=== PATIENT | male | born 1960 | race Caucasian/White ===

== ENCOUNTER 2017-02-17 23:32 | Inpatient (IN) ==
[2017-02-18] MEDS ORDERED: LOPERAMIDE 2 MG CAPSULE PO STA (00:04)
[2017-02-18] MEDS ORDERED: ONDANSETRON 4 MG/2 ML VIAL IV STA (00:04)
--- NOTE | 2017-02-18 00:08 | Emergency Department Note ---
Arrival - Arrival Chief Complaint: Nausea/Vomiting/Diarrhea Stated Complaint: nausea/vommiting ED Nursing Triage Note: PT TO ROOM VIA [facility] STRETCHER. PT C/O N/V AND DECREASED APPETITE. PT HAS DISTINDED ABDOMEN, CIRRHOSIS, PT WAS SCHEDULED FOR PARENCENTESIS IN AM BUT RESCHEDULED. Mode of Arrival: Stretcher Limitations: No Limitations Source: Patient Time Seen by Provider: 02/18/17 00:04 - History of Present Illness HPI Narrative: This 56-year-old white male with long-standing cirrhosis followed by GI presents with complaints of nausea, vomiting, and loose stools. The patient denies chills or fever. The patient was scheduled for elective paracentesis tomorrow for recurrent persistent severe ascites. He appears in stable medical condition at this time. Onset (ago): hour(s) (Patient presents 24 hours post onset of symptoms) Allergies/Adverse Reactions: Allergies Allergy/AdvReac Type Severity Reaction Status Date / Time No Known Allergies Allergy Verified 09/03/16 05:24 Home Medications: Home Medications Medication Instructions Recorded Confirmed Type Sertraline [Zoloft] 50 mg PO DAILY 07/11/15 11/23/16 History Spironolactone [Aldactone] 100 mg PO DAILY 07/11/15 11/23/16 History Thiamine Tab [Vitamin B1 Tab] 100 mg PO DAILY 07/11/15 11/23/16 History amLODIPine [Norvasc] 5 mg PO DAILY 07/11/15 11/23/16 History Furosemide Tab [Lasix Tab] 40 mg PO DAILY #30 tablet 09/03/16 11/23/16 Rx Review of System - Review of System 12 point system: reviewed and no additional remarkable complaints except as stated - Review of System Constitutional: Present: as per HPI Gastrointestinal: Present: as per HPI Medical,Surgical,& Family Hx - Medical History Cardio: History of: Hypertension Neurology: No history of: Seizures Gastrointestinal: History of: Liver Problems - Social History Smoking Status: Current every day smoker Frequency of Alcohol Use: None Type of Drug Use: None Exam Physical Examination: GENERAL: Chronically ill-appearing white male in no acute distress. HEENT: Normocephalic. No trauma. Moist mucous membranes. EOMI. PERRLA. ENT NML NECK: Supple. No adenopathy. CARDIAC: Regular. No murmurs. Heart rate 95 CHEST: Clear to auscultation. No respiratory distress. O2 sat 99% ABDOMEN: Firm but not tense with fluid wave noted. Distant but active bowel sounds. EXTREMITIES: No trauma. Normal ROM. No pedal edema. SKIN: No diaphoresis. No rash. NEURO: Alert. Oriented 3. Motor, sensory, vibratory intact without evidence of asterixis. No focal deficits. Vital Signs: Vital Signs Temperature 98.7 F 02/17/17 23:39 Pulse Rate 97 H 02/17/17 23:39 Respiratory Rate 20 02/17/17 23:39 Blood Pressure 122/72 02/17/17 23:39 O2 Sat by Pulse Oximetry 99 02/17/17 23:39 Course - Reevaluation(s) Reevaluation #1: I have advised the patient of his laboratory abnormalities and need for hospitalization. - Consultations Consultation #1: I discussed the situation with the hospitalist service who will admit for further evaluation treatment. Results - Labs CBC & BMP: 02/18/17 00:00 02/18/17 00:00 Labs: I have reviewed the lab and noted the low hematocrit and elevated ammonia. Disposition Clinical Impression: Cirrhosis with ascites, Hepatic encephalopathy Case discussed with: patient, patient's family Condition: Guarded Time of Disposition: 01:15
[2017-02-18 00:10] LABS: Basophils % 0.5 % (0.0-0.8); Eosinophils # 0.5 10*3/uL (0.0-0.87); Eosinophils % 6.5 % (0.00-10.9); Hematocrit 29.1 VOL% (42.0-52.0); Hemoglobin 10.6 GM/DL (14.0-18.0); Immature Granulocytes % 0.8 %; Immature Granulocytes Absolute 0.06 #; Lymphocytes # 0.7 10*3/uL (1.4-4.0); Mean Corpuscular HGB Conc 36.4 GM/DL (32-36); Mean Corpuscular Hemoglobin 38 PG (27-34); Mean Corpuscular Volume 102.8 FL (87-102); Mean Platelet Volume 8.5 FL (9.6-12.0); Monocytes # 0.8 10*3/uL (0.11-0.8); Monocytes % 9.9 % (1.7-12.7); Neutrophils # 5.8 10*3/uL (1.4-7.4); Neutrophils % 73.3 % (38.7-73.9); Platelet Count 72 T/CUMM (130-400); Red Blood Count 2.83 MC/CUMM (3.8-5.5); Red Cell Distribution Width 14.2 % (9.3-17.3); White Blood Count 7.9 T/CUMM (4-12)
[2017-02-18] MEDS ORDERED: LOPERAMIDE 2 MG CAPSULE ONE (00:12)
[2017-02-18] MEDS ORDERED: ONDANSETRON 4 MG/2 ML VIAL ONE (00:12)
[2017-02-18 00:33] LABS: Alanine Aminotransferase 22 U/L (16-61); Albumin 1.9 G/DL (3.4-5.0); Alkaline Phosphatase 128 U/L (45-117); Amylase 68 U/L (25-115); Aspartate Amino Transferase 25 U/L (0-37); Blood Urea Nitrogen 7 MG/DL (7-18); Calcium 7.3 MG/DL (8.5-10.1); Glucose 107 MG/DL (74-106); Osmolality,Calculated 261.5 MOS/KG (273-304); Potassium 3.9 MMOL/L (3.5-5.1); Sodium 132 MMOL/L (136-145); Total Protein 5.2 G/DL (6.4-8.3); Troponin I Only < 0.015 NG/ML (0.00-0.045)
[2017-02-18 00:36] LABS: Ammonia 63 UMOL/L (11-32)
[2017-02-18] MEDS ORDERED: PROMETHAZINE 25 MG TABLET PO PRN (01:42)
--- NOTE | 2017-02-18 01:56 | Hospitalist History & Physical ---
Assessment and Plan (1) Liver cirrhosis Status: Acute Current Visit: Yes (2) Recurrent ascites Status: Acute Current Visit: Yes (3) Gastroenteritis Status: Acute Current Visit: Yes (4) Nausea vomiting and diarrhea Status: Acute Current Visit: Yes (5) Tobacco abuse Status: Acute Assessment and plan: Greater than 3 minutes was spent with this patient discussing the need for him to quit smoking. Our plan for this patient 1. Admit the patient service 2. Consult his liver specialist Dr. Bhardwaj 3. Ultrasound-guided paracentesis 4. Treat his nausea 5. Clear liquid diet 6. Stool culture and studies Current Visit: Yes History of Present Illness Chief complaint: Nausea vomiting diarrhea History of present illness: Mr. Kline is a 56 year old male with past medical history significant for cirrhosis and recurrent ascites was in his normal state of poor health till yesterday. Patient tells me that he started developing frequent emesis. He also was having diarrhea at the same time. Patient takes lactulose and therefore has loose stools routinely. But he said that this is different than that. He denies fever and was scheduled to have a paracentesis today but postponed until next Tuesday. Dr. Bhardwaj is his liver specialist I was consulted to admit him to the emergency room. Home Medications Medication Instructions Recorded Confirmed Type Sertraline [Zoloft] 50 mg PO DAILY 07/11/15 11/23/16 History Spironolactone [Aldactone] 100 mg PO DAILY 07/11/15 11/23/16 History Thiamine Tab [Vitamin B1 Tab] 100 mg PO DAILY 07/11/15 11/23/16 History amLODIPine [Norvasc] 5 mg PO DAILY 07/11/15 11/23/16 History Furosemide Tab [Lasix Tab] 40 mg PO DAILY #30 tablet 09/03/16 11/23/16 Rx Allergies Allergy/AdvReac Type Severity Reaction Status Date / Time No Known Allergies Allergy Verified 09/03/16 05:24 Medical,Surgical,& Family Hx - Medical History Cardio: History of: Hypertension Neurology: No history of: Seizures Gastrointestinal: History of: Liver Problems - Surgical History Surgical History: noncontributory (none) - Family History Family History: Reports;: Family Cancer, Family Heart Disease - Social History Smoking Status: Current every day smoker Frequency of Alcohol Use: None Type of Drug Use: None 12 point system: reviewed and no additional remarkable complaints except as stated Exam - Constitutional Vitals: Period Temp Pulse Resp BP Sys/Lopez Pulse Ox Last 24 Hr 98.7 F-98.7 F 97-97 20-20 122-122/72-72 99 General appearance: normal weight - Head Head exam: Present: normal inspection - Eye Eye exam: Present: EOMI Pupils: Present: NATI - ENT ENT exam: Present: normal exam - Respiratory Respiratory exam: Present: clear to auscultation bilaterally - Cardiovascular Cardiovascular exam: Present: regular rate and rhythm - GI/Abdominal GI/Abdominal exam: Present: ascites, distended, hernia - Extremities Exam Extremities exam: Present: edema - Back Exam Back exam: Present: normal inspection - Neurological Exam Neurological exam: Present: alert, oriented X3 - Psychiatric Psychiatric exam: Present: normal affect, normal mood Results - Labs CBC & BMP: 02/18/17 00:00 02/18/17 00:00
[2017-02-18 03:19] LABS: Anisocytosis 1+; Band Neutrophils 1 % (0-10); Eosinophils 5 % (0-10); Lymphocytes 9 % (20-55); Myelocytes 1 %; Platelet Estimate Decreased; Segmented Neutrophils 82 % (50-85); Total Cells Counted 100
[2017-02-18 07:57] LABS: Basophils # 0.1 10*3/uL (0.0-0.2); Basophils % 0.6 % (0.0-0.8); Eosinophils # 0.6 10*3/uL (0.0-0.87); Eosinophils % 7.2 % (0.00-10.9); Hematocrit 29.9 VOL% (42.0-52.0); Hemoglobin 11.1 GM/DL (14.0-18.0); Immature Granulocytes % 0.8 %; Immature Granulocytes Absolute 0.07 #; Lymphocytes # 0.8 10*3/uL (1.4-4.0); Lymphocytes % 9.1 % (21.2-54.2); Mean Corpuscular HGB Conc 37.1 GM/DL (32-36); Mean Corpuscular Hemoglobin 38 PG (27-34); Mean Corpuscular Volume 101.7 FL (87-102); Mean Platelet Volume 8.5 FL (9.6-12.0); Monocytes # 0.8 10*3/uL (0.11-0.8); Monocytes % 9.5 % (1.7-12.7); Neutrophils % 72.8 % (38.7-73.9); Red Blood Count 2.94 MC/CUMM (3.8-5.5); Red Cell Distribution Width 14.3 % (9.3-17.3); White Blood Count 8.3 T/CUMM (4-12)
[2017-02-18 07:59] LABS: Platelet Count 84 T/CUMM (130-400)
[2017-02-18 08:03] LABS: INR 1.3; PT Patient Result 14.4 SECS
[2017-02-18 08:16] LABS: Hypochromasia 1+; Ovalocytes Slight; Platelet Estimate Decreased
[2017-02-18 08:17] LABS: Giant Platelets Few
[2017-02-18 08:32] LABS: Albumin 2.1 G/DL (3.4-5.0); Bilirubin,Total 4.4 MG/DL (0.2-1.0); Calcium 7.6 MG/DL (8.5-10.1); Osmolality,Calculated 258.8 MOS/KG (273-304); Potassium 3.8 MMOL/L (3.5-5.1); Total Protein 5.9 G/DL (6.4-8.3)
[2017-02-18] MEDS ORDERED: LACTULOSE 20 GM/30 ML UDCUP PO SCH (09:00)
[2017-02-18 11:01] VITALS: BP 121/74
[2017-02-18] MEDS ORDERED: ALBUMIN 25% 12.5 GM in PREMIX 1 EACH IV ONE ×2 (11:12→12:00)
--- NOTE | 2017-02-18 11:42 | Post Interventional Procedure ---
Pre-op diagnosis: Ascites Post-op diagnosis: same Procedure: Ultrasound-guided paracentesis Radiologist: Vazquez Bailey Anesthesia: local Specimens: none sent Estimated blood loss: none Complications: none Condition: stable Assessment and Plan - Time spent with patient Time spent with patient: Less than 30 minutes
--- NOTE | 2017-02-18 12:22 | Gastrointestinal Consult Note ---
Assessment and Plan (1) Nausea and vomiting Status: Acute Assessment and plan: I strongly suspect that this patient developed nausea and vomiting as result of being exposed to Dilaudid which produced intestinal slowing/ileus resulting in the vomiting episode, now that he is off the medications his symptoms have resolved completely. The patient did receive this medication because he applied for hospice and they granted. If this was on the advice of we can certainly try and get his case reviewed by different transplant team. In my laboratories are discovered this patient does not have hepatitis C, he is positive for hepatitis A and is immune to this, he has no evidence of hemochromatosis with an iron saturation 31%, AFP is normal at 7.9, this patient seems to be doing adequately aside from the sequela of his alcoholic cirrhosis in terms of ascites and hepatic encephalopathy. If we are actively trying to send him to potentially get transplant, I believe that hospice likely since the wrong message and I have asked him to withdraw from their care while we await further workup. Current Visit: Yes (2) Alcoholic cirrhosis of liver with ascites Status: Acute Assessment and plan: This patient does have alcoholic cirrhosis and does require paracentesis to be done about every 2 weeks. This does not look like an SBP episode but rather a medication reaction from Dilaudid. He really does not have substantial pain enough to warrant this medication, but there is not much else pain medication hermosillo to treat him with aside from possibly 2 g of Tylenol per day but not more than this due to his cirrhosis. He could be treated with tramadol but this has a higher risk of seizures with this population. He might be a candidate for TIPSS eventually if we can control his ammonia with Xifaxan and lactulose at its current level. His last ammonia level measured in the clinic was about 102 in the last month or so. Again the patient had paracentesis done with removal of 6 L but likely, will need draining again another 2 weeks. Current Visit: Yes (3) Umbilical hernia without obstruction or gangrene Status: Acute Assessment and plan: The patient does have an umbilical hernia which would respond to counterpressure and abdominal binder. He really does not need surgical repair of this with the amount of ascites that he has--it would simply rapidly recur. Current Visit: Yes (4) Hepatic encephalopathy Status: Acute Assessment and plan: The patient is being controlled with current doses of lactulose. We do not need to add Xifaxan just yet. In my opinion the patient can be discharged today if he does well with a low-sodium diet meal. Again avoid further Dilaudid in the future. Current Visit: Yes History of Present Illness Chief complaint: Nausea/vomiting/alcoholic cirrhosis with severe ascites/mild encephalopathy History of present illness: Mr. Kline is a 56 year old male who recently has decided to apply for hospice, for reasons not completely clear to me. He is due to undergo transplant evaluation of [facility] in the near future. This patient does have alcoholic cirrhosis but has been off of alcohol for the last 9-10 months. He relates that he had in his state of usual health when he was evaluated by hospice nurse and was given Dilaudid. His had commented to the nurse that he was not taking anything for pain, the patient states that when he took this medication it made him extremely ill and started vomiting as a result. He did not throw up anything that look like coffee grounds or bright red blood, just clear fluid and crackers. He states that he threw up approximately 10 times and decided to come to the emergency room for further evaluation as he was not getting much further out from the hospice people, who have been contacted in order to get some Phenergan or other antinauseants. As result he was seen in the emergency room and was brought into the hospital where he has just recently undergone repeat paracentesis. Last paracentesis that he had removed over 10 L this 1 removed approximately 6. He has remained off of alcohol, typically has some diarrhea 4-8 times per day. His waist circumference today is down from his usual 44.5 inches to 41.0 inches with a weight that is increased from 186 pounds to 193 pounds on admission. He has a fairly sizable umbilical hernia but is not having significant abdominal pain. He is actually hungry now would like to eat. Is not having any further episodes of nausea or vomiting. He needs to be off of hospice and not be taking chronic pain medications when he has very little abdominal pain--he was warned that the pain medication would actually make his encephalopathy a lot worse. The patient complains a bit of "feeling different" on 50 mg of Zoloft. states that this does not excellent job in stabilizing his mood, he may consider cutting this back to a half dose per day. Otherwise the patient feels much better now that he is away from his Dilaudid, if he tolerates a solid meal that is low-sodium he can likely go home today. Home Medications Medication Instructions Recorded Confirmed Type Sertraline [Zoloft] 50 mg PO DAILY 07/11/15 02/18/17 History Spironolactone [Aldactone] 100 mg PO DAILY 07/11/15 02/18/17 History Thiamine Tab [Vitamin B1 Tab] 100 mg PO DAILY 07/11/15 02/18/17 History amLODIPine [Norvasc] 5 mg PO DAILY 07/11/15 02/18/17 History Furosemide Tab [Lasix Tab] 40 mg PO DAILY #30 tablet 09/03/16 02/18/17 Rx Potassium Chloride 20 meq PO DAILY 02/18/17 02/18/17 History Temazepam [Temazepam] 15 mg PO BEDTIME PRN 02/18/17 02/18/17 History Allergies Allergy/AdvReac Type Severity Reaction Status Date / Time No Known Allergies Allergy Verified 09/03/16 05:24 Medical,Surgical,& Family Hx - Medical History Cardio: History of: Hypertension Neurology: No history of: Seizures Endocrine: No history of: Diabetes Mellitus (NIDDM) Gastrointestinal: History of: Liver Problems Musculoskeletal: No history of: Amputation - Surgical History Cardiac Surgeries: Patient Denies: Cardiac Catheterization Abdominal Surgeries: Patient denies: Abdominal Surgery - Family History Family History: Reports;: Family Cancer, Family Heart Disease - Social History Smoking Status: Current every day smoker Frequency of Alcohol Use: None Type of Drug Use: None Review of systems: Constitutional: Denies fever, chills, but positive for recent nausea, and vomiting Eyes: Denies dry eyes, and scleral icterus HENT: Denies headaches Cardiovascular: Denies acute chest pain and claudication Respiratory: Denies shortness of breath, wheezing, and difficulty breathing, denies cough Gastrointestinal: As noted in the HPI Genitourinary: Denies dysuria and hematuria Neurologic: Denies vision loss, and loss of sensation Musculoskeletal: Patient does have joint swelling, joint stiffness, and muscular weakness Psychiatric: Admits to some depression and history of alcoholism but no jayla symptoms Heme-Lymph: Patient does have some easy bruising, but no lymph node enlargement or tenderness, night sweats, excessive bleeding Allergies-immunologic: Denies pruritus and rhinorrhea Exam - Constitutional Vitals: Period Temp Pulse Resp BP Sys/Lopez Pulse Ox Last 24 Hr 97.8 F-98.7 F 90-99 16-20 96-128/60-81 92-99 General appearance: no acute distress - Head Head exam: Present: normocephalic - Eye Eye exam: Present: EOMI Pupils: Present: NATI - ENT ENT exam: Present: normal exam - Neck Neck exam: Present: normal inspection - Respiratory Respiratory exam: Present: clear to auscultation bilaterally. Absent: rhonchi, stridor, wheezes - Cardiovascular Cardiovascular exam: Present: regular rate and rhythm - GI/Abdominal GI/Abdominal exam: Present: normal bowel sounds, distended (The current abdominal circumference is 41 inches which is improved from 44.51 last in the office on 11/29/16), soft. Absent: firm, guarding, tenderness, rebound - Extremities Exam Extremities exam: Present: edema - Back Exam Back exam: Present: normal inspection - Neurological Exam Neurological exam: Present: alert, oriented X3, CN II-XII intact - Psychiatric Psychiatric exam: Present: normal affect, normal mood - Skin Skin exam: Present: warm Results - Labs CBC & BMP: 02/18/17 07:48 02/18/17 07:48
--- NOTE | 2017-02-18 13:15 | Ultrasound Report ---
US paracentesis abd w/image Indication: Recurrent ascites. Ultrasound-guided paracentesis Description: A formal timeout was performed. Maximum sterile barrier technique was used. The right lower quadrant was prepped and draped in sterile fashion. Under sonographic guidance, a 6 Peruvian pigtail catheter was advanced into the ascites using trocar technique. A captured sonographic image documents needle position. The needle was removed. Through the catheter, we obtained a total of 6800 cc of straw-colored ascites. No additional fluid could be obtained. Therefore, the catheter was removed. A bandage was placed at the puncture site. The patient tolerated the procedure well. Impression: Ultrasound-guided paracentesis. PROCEDURE INTERPRETED AT [facility] DEPARTMENT OF RADIOLOGY Final Report Signed by: Vazquez Bailey M.D.
--- NOTE | 2017-02-18 14:11 | Discharge Summary ---
Hospital Course - Hospital Course Hospital Course: 56-year-old male with history of alcoholic cirrhosis was admitted with ascites as well as some nausea vomiting. Apparently patient signed up for hospice and they gave him Dilaudid. After that he developed nausea vomiting and presented here. Dilaudid was not resumed. He underwent therapeutic paracentesis and about 6 L of fluid was removed and his symptoms improved significantly. He is feeling much better and has reached maximum hospital benefit and being discharged home. - Time spent with patient Time with patient DS: Less than 30 minutes Diagnosis - Discharge Diagnosis (1) Nausea vomiting and diarrhea Status: Resolved Discharge Plan - Discharge Data Condition at Discharge: Stable Discharge Diet: advance to your usual diet Activity: resume usual activities as tolerated Hygiene: no restrictions Weight Bearing at Discharge: full weight bearing Driving: no restrictions - Discharge Medications Continue amLODIPine [Norvasc] 5 mg PO DAILY Thiamine Tab [Vitamin B1 Tab] 100 mg PO DAILY Spironolactone [Aldactone] 100 mg PO DAILY Furosemide Tab [Lasix Tab] 40 mg PO DAILY #30 tablet Potassium Chloride 20 meq PO DAILY Temazepam 15 mg PO BEDTIME PRN PRN Reason: Sleep Changed Sertraline [Zoloft] 25 mg PO DAILY #0 - Follow Up or Referral - Forms/Instructions Exam - Constitutional Vitals: Period Temp Pulse Resp BP Sys/Lopez Pulse Ox Last 24 Hr 97.8 F-98.7 F 90-99 16-20 96-128/60-81 92-99 Exam: General: No Acute Distress HEENT: Normocephalic, atraumatic, Extra ocular movements intact Neck: Supple, No JVD Chest: Clear to auscultation B/L CV: S1 + S2 audible without murmur, gallop or rub Abd: soft, NT, Non-distended, BS + Ext: No edema Skin: No purpura, bruising or rash Rheumatologic: No Joint deformities Neurologic: Strength 5/5 all extremities, no gross sensory deficits Discharge Results Procedures and tests throughout hospitalization: Pending Orders 02/18/17 01:50 Stool Culture Routine Stool for WBCs Routine stool [C. Diff Toxins A & B] Routine 02/18/17 02:28 Urinalysis Stat Labs on day of discharge: Labs from last 24 hours 02/18/17 02/18/17 02/18/17 07:48 07:48 07:48 WBC 8.3 RBC 2.94 L Hgb 11.1 L Hct 29.9 L MCV 101.7 MCH 38 H MCHC 37.1 H RDW 14.3 Plt Count 84 L MPV 8.5 L Neut % (Auto) 72.8 Lymph % (Auto) 9.1 L Davis % (Auto) 9.5 Eos % (Auto) 7.2 Baso % (Auto) 0.6 Neut # (Auto) 6.0 Lymph # (Auto) 0.8 L Davis # (Auto) 0.8 Eos # (Auto) 0.6 Baso # (Auto) 0.1 Total Counted Immature Gran % 0.8 Nucleated RBC % 0.0 Immature Gran # 0.07 Segmented Neutrophils Band Neutrophils Lymphocytes Monocytes Eosinophils Myelocytes Nucleated RBCs # 0.00 Platelet Estimate Decreased Giant Platelets Few Immature Plt Fraction 0.9 Hypochromasia 1+ Anisocytosis Ovalocytes Slight Morphology Comment INR 1.3 PT Patient/Control Mix 14.4 Sodium 130 L Potassium 3.8 Chloride 97 L Carbon Dioxide 25 Anion Gap 11.8 BUN 8 Creatinine 0.80 GFR Calculation 121 BUN/Creatinine Ratio 10.00 Glucose 109 H Calculated Osmolality 258.8 L Calcium 7.6 L Total Bilirubin 4.40 H AST 29 ALT 26 Alkaline Phosphatase 136 H Ammonia Total Creatine Kinase CK-MB (CK-2) Troponin I Total Protein 5.9 L Albumin 2.1 L Globulin 3.8 H Albumin/Globulin Ratio 0.5 L Amylase Lipase 02/18/17 02/18/17 00:00 00:00 WBC 7.9 RBC 2.83 L Hgb 10.6 L Hct 29.1 L MCV 102.8 H MCH 38 H MCHC 36.4 H RDW 14.2 Plt Count 72 L MPV 8.5 L Neut % (Auto) 73.3 Lymph % (Auto) 9.0 L Davis % (Auto) 9.9 Eos % (Auto) 6.5 Baso % (Auto) 0.5 Neut # (Auto) 5.8 Lymph # (Auto) 0.7 L Davis # (Auto) 0.8 Eos # (Auto) 0.5 Baso # (Auto) 0.0 Total Counted 100 Immature Gran % 0.8 Nucleated RBC % 0.0 Immature Gran # 0.06 Segmented Neutrophils 82 Band Neutrophils 1 Lymphocytes 9 L Monocytes 2 Eosinophils 5 Myelocytes 1 Nucleated RBCs # 0.00 Platelet Estimate Decreased Giant Platelets Immature Plt Fraction 0.0 Hypochromasia Anisocytosis 1+ Ovalocytes Morphology Comment INR PT Patient/Control Mix Sodium 132 L Potassium 3.9 Chloride 100 Carbon Dioxide 26 Anion Gap 9.9 BUN 7 Creatinine 0.70 GFR Calculation 130 BUN/Creatinine Ratio 10.00 Glucose 107 H Calculated Osmolality 261.5 L Calcium 7.3 L Total Bilirubin 2.80 H AST 25 ALT 22 Alkaline Phosphatase 128 H Ammonia 63 H Total Creatine Kinase 82 CK-MB (CK-2) 2.4 Troponin I < 0.015 Total Protein 5.2 L Albumin 1.9 L Globulin 3.3 Albumin/Globulin Ratio 0.5 L Amylase 68 Lipase 207.0 DS: Provider Date of admission: 02/18/17 01:42 Primary care physician: Shola Roland Attending physician on admission: Vazquez Farr MD Consults: 02/18/17 01:42 Consult to Physician [CONS] Routine Comment: Consulting Provider: Devan Bhardwaj Person Notified: N[place]is Date Notified: 02/18/17 Time Notified: 10:27 02/18/17 03:10 Consult to Dietitian [CONS] Routine Reason for Dietitian: Dietary Consult 02/18/17 13:27 Consult to Case Mgmt/Social Srvs [CONS] Routine Reason for Case Mgmt/Social Srvs: Home Health Discharge Planning Discharging clinician: Vel Padilla MD
== END 2017-02-18 16:03 | disposition home or self-care (01) | DRG 392 ==
LOC: EDBD → EDUNIT# → N.ED 23:32 → SUATTDRO 02-18 01:42 → N.EDINP 02-18 01:42 → N.5E 02-18 02:16
PROVIDERS: ADMIT Internal Medicine; ATTEND Internal Medicine Infectious Disease

== ENCOUNTER 2017-06-27 06:26 | Inpatient (IN) ==
[~2017-06-27 06:26] MED LIST: CEFAZOLIN IV ONE; ceFAZolin 1,000 MG VIAL ONE
[2017-06-27] MEDS: SODIUM CHLORIDE 0.45% 1,000 ML IV SCH ×2 (08:30→15:08)
[2017-06-27] MEDS ORDERED: ceFAZolin 1,000 MG VIAL ONE (08:33)
[2017-06-27] MEDS ORDERED: PANTOPRAZOLE 40 MG TABLET PO ONE ×2 (09:01→09:50)
[2017-06-27] MEDS ORDERED: DIAZEPAM 5 MG TABLET PO ONE (09:01)
[2017-06-27 09:05] LABS: Basophils # 0.1 10*3/uL (0.0-0.2); Basophils % 1.3 % (0.0-0.8); Eosinophils # 1.1 10*3/uL (0.0-0.87); Hematocrit 33.8 VOL% (42.0-52.0); Hemoglobin 11.4 GM/DL (14.0-18.0); Immature Granulocytes % 1.3 %; Immature Granulocytes Absolute 0.11 #; Lymphocytes # 0.6 10*3/uL (1.4-4.0); Lymphocytes % 7.9 % (21.2-54.2); Mean Corpuscular HGB Conc 33.7 GM/DL (32-36); Mean Corpuscular Hemoglobin 35 PG (27-34); Mean Corpuscular Volume 103.4 FL (87-102); Mean Platelet Volume 8.5 FL (9.6-12.0); Monocytes # 0.8 10*3/uL (0.11-0.8); Monocytes % 9.8 % (1.7-12.7); Neutrophils # 5.4 10*3/uL (1.4-7.4); Neutrophils % 65.7 % (38.7-73.9); Platelet Count 100 T/CUMM (130-400); Red Blood Count 3.27 MC/CUMM (3.8-5.5); Red Cell Distribution Width 15.1 % (9.3-17.3); White Blood Count 8.2 T/CUMM (4-12)
[2017-06-27 09:14] LABS: INR 1.2; PT Patient Result 12.3 SECS
[2017-06-27 09:33] LABS: Eosinophils 15 % (0-10); Lymphocytes 5 % (20-55); Segmented Neutrophils 71 % (50-85); Total Cells Counted 100
[2017-06-27 09:34] LABS: Macrocytosis Slight; Platelet Estimate Decreased
[2017-06-27 09:45] LABS: Calcium 7.8 MG/DL (8.5-10.1); Osmolality,Calculated 257.8 MOS/KG (273-304); Potassium 4.9 MMOL/L (3.5-5.1)
[2017-06-27] MEDS ORDERED: DIAZEPAM 5 MG TABLET ONE (09:50)
[2017-06-27] MEDS ORDERED: HEPARIN/NACL 0.9% 2 UNITS/ML 2,000 ML IV ONE (10:21)
[2017-06-27] MEDS ORDERED: ALBUMIN 5% 12.5 GM/250 ML VIAL IV ONE ×2 (11:38)
[2017-06-27] MEDS ORDERED: PROPOFOL 200 MG/20 ML VIAL IV ONE (13:51)
[2017-06-27] MEDS ORDERED: MIDAZOLAM 2 MG/2 ML VIAL ONE (13:52)
[2017-06-27] MEDS ORDERED: ONDANSETRON 4 MG/2 ML VIAL ONE (13:52)
[2017-06-27] MEDS ORDERED: SUCCINYLCHOLINE 200 MG/10 ML VIAL ONE (13:52)
[2017-06-27] MEDS ORDERED: PHENYLEPHRINE 50 MG/5 ML VIAL ONE (13:52)
[2017-06-27] MEDS ORDERED: fentaNYL 100 MCG/2 ML VIAL ONE (13:52)
[2017-06-27] MEDS ORDERED: SODIUM CHLORIDE 0.9% 250 ML IV ONE (13:53)
[2017-06-27] MEDS ORDERED: SEVOFLURANE 1 UNIT/15 MINUTE INH ONE (13:53)
[2017-06-27] MEDS ORDERED: LACTATED RINGERS 1,000 ML IV ONE (13:53)
[2017-06-27] MEDS ORDERED: TEMAZEPAM 15 MG CAPSULE PO PRN (15:44)
[2017-06-27 16:24] LABS: Apearance,Urine CLEAR (Clear); Bilirubin,Urine Negative (Negative); Blood, Urine Small mg/dL (Negative); Glucose,Urine (UA) Negative (Negative); Ketones,Urine Negative (Negative); Mucus,Urine Occasional /LPF (Occasional); Nitrite,Urine Negative (Negative); Protein,Urine Negative; RBC,Urine 2 /HPF (0-4); Urine Color Yellow (Yellow); Urine Specific Gravity 1.026 (1.001-1.035); Urine Urobilinogen < 2.0 EU/DL (0.2-1.0); WBC,Urine 1 /HPF (0-6)
[2017-06-27] MEDS: MEPERIDINE 50 MG/1 ML VIAL IV PRN ×2 (16:36→20:15)
[2017-06-27] MEDS ORDERED: CITALOPRAM 20 MG TABLET PO SCH (21:00)
[2017-06-28] MEDS: MEPERIDINE 50 MG/1 ML VIAL IV PRN (01:30)
[2017-06-28 04:50] LABS: Basophils % 0.6 % (0.0-0.8); Eosinophils # 0.6 10*3/uL (0.0-0.87); Eosinophils % 8.9 % (0.00-10.9); Hematocrit 29.1 VOL% (42.0-52.0); Hemoglobin 9.9 GM/DL (14.0-18.0); Immature Granulocytes % 0.9 %; Immature Granulocytes Absolute 0.06 #; Lymphocytes # 0.4 10*3/uL (1.4-4.0); Lymphocytes % 6.7 % (21.2-54.2); Mean Corpuscular Hemoglobin 35 PG (27-34); Mean Corpuscular Volume 102.1 FL (87-102); Mean Platelet Volume 8.4 FL (9.6-12.0); Monocytes # 0.7 10*3/uL (0.11-0.8); Monocytes % 10.1 % (1.7-12.7); Neutrophils # 4.8 10*3/uL (1.4-7.4); Neutrophils % 72.8 % (38.7-73.9); Platelet Count 66 T/CUMM (130-400); Red Blood Count 2.85 MC/CUMM (3.8-5.5); Red Cell Distribution Width 14.8 % (9.3-17.3); White Blood Count 6.5 T/CUMM (4-12)
[2017-06-28 04:58] LABS: INR 1.4; PT Patient Result 14.7 SECS
[2017-06-28 05:19] LABS: Bilirubin,Total 3.7 MG/DL (0.2-1.0); Osmolality,Calculated 262.5 MOS/KG (273-304); Potassium 4.2 MMOL/L (3.5-5.1)
[2017-06-28 10:27] VITALS: BP 115/69
== END 2017-06-28 11:10 | disposition home or self-care (01) | DRG 407 ==
LOC: N.RAD 06:26 → N.SDSINP 06:30 → N.ICU 13:36
PROVIDERS: ADMIT Internal Medicine Gastroenterology; ATTEND Internal Medicine Gastroenterology
PROC: IRTIPSW (2017-06-27 11:45)

== ENCOUNTER 2017-09-22 13:29 | Inpatient (IN) ==
[2017-09-22] MEDS ORDERED: ONDANSETRON 4 MG/2 ML VIAL IV STA (14:29)
[2017-09-22] MEDS ORDERED: SODIUM CHLORIDE 0.9% 500 ML IV STA (14:29)
[2017-09-22] MEDS ORDERED: LEVOFLOXACIN INJ 750 MG in PREMIX 1 EACH IV STA (14:36)
[2017-09-22] MEDS ORDERED: LIDOCAINE 1% 50 ML VIAL ONE (14:53)
[2017-09-22] MEDS ORDERED: ALBUMIN 25% 12.5 GM in PREMIX 1 EACH IV ONE (14:58)
[2017-09-22] MEDS ORDERED: TISSUE ADHESIVE 1 EACH APPLICATOR TOP ONE (15:03)
[2017-09-22 15:10] LABS: Basophils # 0.1 10*3/uL (0.0-0.2); Basophils % 0.4 % (0.0-0.8); Eosinophils # 0.3 10*3/uL (0.0-0.87); Eosinophils % 0.8 % (0.00-10.9); Hematocrit 25.9 VOL% (42.0-52.0); Hemoglobin 8.7 GM/DL (14.0-18.0); Immature Granulocytes % 5.9 %; Immature Granulocytes Absolute 1.78 #; Lymphocytes # 0.9 10*3/uL (1.4-4.0); Lymphocytes % 2.8 % (21.2-54.2); Mean Corpuscular HGB Conc 33.6 GM/DL (32-36); Mean Corpuscular Hemoglobin 38 PG (27-34); Mean Corpuscular Volume 111.6 FL (87-102); Mean Platelet Volume 8.9 FL (9.6-12.0); Monocytes # 2.2 10*3/uL (0.11-0.8); Monocytes % 7.1 % (1.7-12.7); Neutrophils # 25.1 10*3/uL (1.4-7.4); Platelet Count 124 T/CUMM (130-400); Red Blood Count 2.32 MC/CUMM (3.8-5.5); Red Cell Distribution Width 17.6 % (9.3-17.3); White Blood Count 30.3 T/CUMM (4-12)
[2017-09-22 15:32] LABS: Lactic Acid 3.3 MMOL/L (0.4-2.0)
[2017-09-22 15:33] LABS: Bilirubin,Total 8.4 MG/DL (0.2-1.0); Osmolality,Calculated 268.1 MOS/KG (273-304); Potassium 3.5 MMOL/L (3.5-5.1); Total Protein 5.2 G/DL (6.4-8.3)
[2017-09-22] MEDS ORDERED: LEVOFLOXACIN INJ 150 ML IV ONE (15:36)
[2017-09-22] MEDS ORDERED: ONDANSETRON 4 MG/2 ML VIAL ONE (15:36)
[2017-09-22 15:45] LABS: Amylase 47 U/L (25-115); Troponin I Only < 0.015 NG/ML (0.00-0.045)
[2017-09-22] MEDS ORDERED: VANCOMYCIN INJ 1,000 MG in SODIUM CHLORIDE 0.9% 250 ML IV SCH (16:00)
[2017-09-22 16:05] LABS: INR 1.9
[2017-09-22 16:07] LABS: Partial Thromboplastin Time 44.3 SECS (0-40)
[2017-09-22] MEDS ORDERED: SODIUM CHLORIDE 0.9% 3,050 ML IV ONE (16:07)
[2017-09-22 16:26] LABS: Band Neutrophils 1 % (0-10); Eosinophils 2 % (0-10); Lymphocytes 4 % (20-55); Polychromasia Few; Segmented Neutrophils 93 % (50-85); Total Cells Counted 100
[2017-09-22 16:27] LABS: Platelet Estimate Decreased
[2017-09-22] MEDS ORDERED: PIPERACILLIN/TAZOBACTAM 3,375 MG in SODIUM CHLORIDE 0.9% 100 ML IV SCH (16:30)
[2017-09-22] MEDS ORDERED: VANCOMYCIN 1,000 MG VIAL ONE (16:32)
[2017-09-22] MEDS ORDERED: PIPERACILLIN/TAZOBACTAM 3,375 MG VIAL IV ONE (16:50)
[2017-09-22 16:54] LABS: Neutrophils,Peritoneal Fluid 98 %
[2017-09-22 16:55] LABS: RBC,Peritoneal Fluid 102 T/CUMM
[2017-09-22] MEDS ORDERED: NOREPINEPHRINE 4 MG/4 ML VIAL IV ONE (17:33)
[2017-09-22] MEDS: SODIUM CHLORIDE 0.9% 1,000 ML IV SCH (17:36)
[2017-09-22] MEDS: NOREPINEPHRINE 8 MG in SODIUM CHLORIDE 0.9% 242 ML IV SCH (18:03)
[2017-09-22] MEDS ORDERED: TEMAZEPAM 15 MG CAPSULE PO PRN (18:25)
[2017-09-22] MEDS: CLINDAMYCIN INJ 900 MG in PREMIX 1 EACH IV SCH (20:33)
[2017-09-22] MEDS: DOXYCYCLINE HYCLATE INJ 100 MG in SODIUM CHLORIDE 0.9% 100 ML IV SCH (20:33)
[2017-09-22] MEDS: MORPHINE 4 MG/1 ML VIAL IV PRN (20:34)
[2017-09-22] MEDS ORDERED: VANCOMYCIN INJ 1,500 MG in SODIUM CHLORIDE 0.9% 500 ML IV SCH (21:00)
[2017-09-22] MEDS ORDERED: CITALOPRAM 20 MG TABLET PO SCH (21:00)
[2017-09-23] MEDS: SODIUM CHLORIDE 0.9% 1,000 ML IV SCH (01:20)
[2017-09-23] MEDS: MORPHINE 4 MG/1 ML VIAL IV PRN ×3 (02:15→21:55)
[2017-09-23 03:27] LABS: Basophils # 0.1 10*3/uL (0.0-0.2); Basophils % 0.4 % (0.0-0.8); Eosinophils # 0.1 10*3/uL (0.0-0.87); Eosinophils % 0.5 % (0.00-10.9); Hemoglobin 7.9 GM/DL (14.0-18.0); Immature Granulocytes % 7.6 %; Immature Granulocytes Absolute 2.25 #; Lymphocytes # 0.9 10*3/uL (1.4-4.0); Lymphocytes % 3.2 % (21.2-54.2); Mean Corpuscular HGB Conc 32.9 GM/DL (32-36); Mean Corpuscular Hemoglobin 37 PG (27-34); Mean Corpuscular Volume 111.6 FL (87-102); Mean Platelet Volume 8.5 FL (9.6-12.0); Monocytes # 1.9 10*3/uL (0.11-0.8); Monocytes % 6.5 % (1.7-12.7); Neutrophils # 24.4 10*3/uL (1.4-7.4); Neutrophils % 81.8 % (38.7-73.9); Platelet Count 133 T/CUMM (130-400); Red Blood Count 2.15 MC/CUMM (3.8-5.5); Red Cell Distribution Width 17.1 % (9.3-17.3); White Blood Count 29.8 T/CUMM (4-12)
[2017-09-23 03:55] LABS: Bilirubin,Total 7.9 MG/DL (0.2-1.0); Calcium 6.6 MG/DL (8.5-10.1); Osmolality,Calculated 273.5 MOS/KG (273-304); Potassium 3.3 MMOL/L (3.5-5.1); Total Protein 4.5 G/DL (6.4-8.3)
[2017-09-23 04:05] LABS: Band Neutrophils 16 % (0-10); Lymphocytes 4 % (20-55); Metamyelocytes 1 %; Myelocytes 2 %; Segmented Neutrophils 74 % (50-85); Total Cells Counted 100
[2017-09-23 04:06] LABS: Macrocytosis 2+
[2017-09-23 04:07] LABS: Anisocytosis 2+; Poikilocytosis 1+; Polychromasia 2+
[2017-09-23 04:55] LABS: Allen Test Positive
[2017-09-23 04:56] LABS: ABG Base Excess -0.2 MMOL/L (-2.5-2.5); ABG HCO3 24.2 MMOL/L (20-26); ABG Oxygen Saturation 98.1 % (95-100); ABG PCO2 39.5 MM HG (35-48); ABG TCO2 22.9 MMOL/L (23-27)
[2017-09-23] MEDS: CLINDAMYCIN INJ 900 MG in PREMIX 1 EACH IV SCH ×2 (06:02→16:47)
[2017-09-23] MEDS: NOREPINEPHRINE 8 MG in SODIUM CHLORIDE 0.9% 242 ML IV SCH ×2 (08:57→22:05)
[2017-09-23] MEDS: DOXYCYCLINE HYCLATE INJ 100 MG in SODIUM CHLORIDE 0.9% 100 ML IV SCH ×2 (09:22→21:57)
[2017-09-23] MEDS ORDERED: GLUCAGON 1 MG VIAL IM PRN (11:27)
[2017-09-23] MEDS ORDERED: DEXTROSE 50% 25 GM/50 ML VIAL IV PRN (11:27)
[2017-09-23] MEDS: INSULIN REGULAR 100 UNIT/ML SUBCUT SCH ×2 (13:17→18:10)
[2017-09-23] MEDS: DEXT 5% NACL 0.9% KCL 20 MEQ 20 MEQ/1,000 ML BAG IV SCH (13:18)
[2017-09-23] MEDS: LINEZOLID INJ 600 MG in PREMIX 1 EACH IV SCH (13:21)
[2017-09-23] MEDS: FAT EMULSION 20% 250 ML IV SCH (16:50)
[2017-09-23 17:34] LABS: Apearance,Urine Slightly Hazy (Clear); Bacteria,Urine Occasional /HPF (Few); Blood, Urine Moderate mg/dL (Negative); Glucose,Urine (UA) Negative (Negative); Hyaline Casts,Urine 14 /LPF (0-3); Ketones,Urine Negative (Negative); Mucus,Urine Occasional /LPF (Occasional); Nitrite,Urine Negative (Negative); Protein,Urine Negative; RBC,Urine 1 /HPF (0-4); Squamous Epithelial Cell,Urine Occasional /HPF (0-10); Urine Color Amber (Yellow); Urine Specific Gravity 1.015 (1.001-1.035); WBC,Urine <1 /HPF (0-6)
[2017-09-23 17:35] LABS: Bilirubin,Urine Small mg/dL (Negative)
[2017-09-23] MEDS: MULTIVITAMIN INJ 10 ML in AMINO ACIDS/DEXT/LYTES 4.25-5% 2,000 ML IV SCH (18:00)
[2017-09-24] MEDS: INSULIN REGULAR 100 UNIT/ML SUBCUT SCH ×4 (03:19→18:17)
[2017-09-24] MEDS: LINEZOLID INJ 600 MG in PREMIX 1 EACH IV SCH ×2 (04:17→16:21)
[2017-09-24] MEDS: CLINDAMYCIN INJ 900 MG in PREMIX 1 EACH IV SCH ×3 (04:17→20:00)
[2017-09-24 05:18] LABS: Blood Urea Nitrogen 37 MG/DL (7-18); Calcium 6.7 MG/DL (8.5-10.1); Glucose 140 MG/DL (74-106); Osmolality,Calculated 278.2 MOS/KG (273-304); Potassium 3.5 MMOL/L (3.5-5.1); Prealbumin < 3.0 MG/DL (20-40); Sodium 134 MMOL/L (136-145); Triglycerides 77 MG/DL (2-150)
[2017-09-24 06:17] LABS: Bilirubin,Direct 4.66 MG/DL (0.0-0.20); Bilirubin,Indirect 1.2 MG/DL (0.0-1.0); Bilirubin,Total 5.9 MG/DL (0.2-1.0); Total Protein 4.8 G/DL (6.4-8.3)
[2017-09-24] MEDS: DEXT 5% NACL 0.9% KCL 20 MEQ 20 MEQ/1,000 ML BAG IV SCH ×2 (08:01→23:00)
[2017-09-24] MEDS: DOXYCYCLINE HYCLATE INJ 100 MG in SODIUM CHLORIDE 0.9% 100 ML IV SCH ×2 (09:29→21:30)
[2017-09-24] MEDS: MORPHINE 4 MG/1 ML VIAL IV PRN (15:04)
[2017-09-24] MEDS: FAT EMULSION 20% 250 ML IV SCH (15:08)
[2017-09-24] MEDS: MULTIVITAMIN INJ 10 ML in AMINO ACIDS/DEXT/LYTES 4.25-5% 2,000 ML IV SCH (18:24)
[2017-09-24] MEDS: NOREPINEPHRINE 8 MG in SODIUM CHLORIDE 0.9% 242 ML IV SCH (19:30)
[2017-09-25] MEDS: INSULIN REGULAR 100 UNIT/ML SUBCUT SCH ×4 (01:15→21:40)
[2017-09-25] MEDS: MORPHINE 4 MG/1 ML VIAL IV PRN ×3 (02:00→21:38)
[2017-09-25] MEDS: LINEZOLID INJ 600 MG in PREMIX 1 EACH IV SCH ×2 (04:30→16:59)
[2017-09-25] MEDS: CLINDAMYCIN INJ 900 MG in PREMIX 1 EACH IV SCH ×3 (04:36→21:31)
[2017-09-25 05:15] LABS: Basophils # 0.1 10*3/uL (0.0-0.2); Basophils % 0.6 % (0.0-0.8); Eosinophils # 0.3 10*3/uL (0.0-0.87); Eosinophils % 1.5 % (0.00-10.9); Hematocrit 23.7 VOL% (42.0-52.0); Hemoglobin 7.7 GM/DL (14.0-18.0); Immature Granulocytes % 11.8 %; Immature Granulocytes Absolute 2.09 #; Lymphocytes # 0.9 10*3/uL (1.4-4.0); Lymphocytes % 5.2 % (21.2-54.2); Mean Corpuscular HGB Conc 32.5 GM/DL (32-36); Mean Corpuscular Hemoglobin 37 PG (27-34); Mean Corpuscular Volume 113.4 FL (87-102); Mean Platelet Volume 8.9 FL (9.6-12.0); Monocytes # 1.4 10*3/uL (0.11-0.8); Monocytes % 8.2 % (1.7-12.7); Neutrophils # 12.8 10*3/uL (1.4-7.4); Neutrophils % 72.7 % (38.7-73.9); Platelet Count 128 T/CUMM (130-400); Red Blood Count 2.09 MC/CUMM (3.8-5.5); Red Cell Distribution Width 16.6 % (9.3-17.3); White Blood Count 17.7 T/CUMM (4-12)
[2017-09-25 05:56] LABS: Albumin 0.9 G/DL (3.4-5.0); Bilirubin,Direct 2.98 MG/DL (0.0-0.20); Bilirubin,Indirect 1.1 MG/DL (0.0-1.0); Bilirubin,Total 4.1 MG/DL (0.2-1.0); Total Protein 5.1 G/DL (6.4-8.3)
[2017-09-25 06:32] LABS: Band Neutrophils 3 % (0-10); Eosinophils 1 % (0-10); Hypochromasia 2+; Lymphocytes 1 % (20-55); Macrocytosis 1+; Platelet Estimate Decreased; Segmented Neutrophils 89 % (50-85); Total Cells Counted 100
[2017-09-25] MEDS: DOXYCYCLINE HYCLATE INJ 100 MG in SODIUM CHLORIDE 0.9% 100 ML IV SCH ×2 (10:36→21:30)
[2017-09-25] MEDS ORDERED: SODIUM CHLORIDE 0.9% 1,000 ML IV PRN (12:48)
[2017-09-25] MEDS: FAT EMULSION 20% 250 ML IV SCH (14:24)
[2017-09-25] MEDS: DEXT 5% NACL 0.9% KCL 20 MEQ 20 MEQ/1,000 ML BAG IV SCH (15:21)
[2017-09-25] MEDS: MULTIVITAMIN INJ 10 ML in AMINO ACIDS/DEXT/LYTES 4.25-5% 2,000 ML IV SCH (18:40)
[2017-09-25] MEDS: RIFAXIMIN 550 MG TABLET PO SCH (21:30)
[2017-09-25] MEDS: NOREPINEPHRINE 8 MG in SODIUM CHLORIDE 0.9% 242 ML IV SCH (21:31)
[2017-09-26] MEDS: INSULIN REGULAR 100 UNIT/ML SUBCUT SCH ×4 (06:09→17:23)
[2017-09-26 07:32] LABS: Basophils # 0.1 10*3/uL (0.0-0.2); Basophils % 0.5 % (0.0-0.8); Eosinophils # 0.1 10*3/uL (0.0-0.87); Hematocrit 26.8 VOL% (42.0-52.0); Immature Granulocytes % 8.2 %; Lymphocytes # 0.6 10*3/uL (1.4-4.0); Mean Corpuscular HGB Conc 33.6 GM/DL (32-36); Mean Corpuscular Hemoglobin 35 PG (27-34); Mean Corpuscular Volume 104.7 FL (87-102); Mean Platelet Volume 8.7 FL (9.6-12.0); Monocytes # 0.9 10*3/uL (0.11-0.8); Monocytes % 8.5 % (1.7-12.7); Neutrophils # 8.4 10*3/uL (1.4-7.4); Neutrophils % 76.8 % (38.7-73.9); Red Blood Count 2.56 MC/CUMM (3.8-5.5); Red Cell Distribution Width 21.2 % (9.3-17.3)
[2017-09-26 07:51] LABS: Platelet Count 95 T/CUMM (130-400)
[2017-09-26 08:03] LABS: Osmolality,Calculated 272.4 MOS/KG (273-304); Potassium 4.6 MMOL/L (3.5-5.1)
[2017-09-26 08:07] LABS: % Iron Saturation 106.6 % (18-50); Ferritin 651.4 ng/ml (26-388)
[2017-09-26 08:08] LABS: Folate 4.1 NG/ML (5.4-24.0); Vitamin B12 > 2000 PG/ML (211-911)
[2017-09-26 08:14] LABS: Band Neutrophils 1 % (0-10); Lymphocytes 2 % (20-55); Platelet Estimate Decreased; Segmented Neutrophils 92 % (50-85); Total Cells Counted 100
[2017-09-26 08:15] LABS: Giant Platelets Few; Hypochromasia 1+; Macrocytosis Slight; Ovalocytes Slight
[2017-09-26] MEDS: CLINDAMYCIN INJ 900 MG in PREMIX 1 EACH IV SCH (09:00)
[2017-09-26] MEDS: RIFAXIMIN 550 MG TABLET PO SCH ×2 (09:14→21:40)
[2017-09-26 09:23] LABS: Sedimentation Rate-Westergren 105 MM/HR (0-20)
[2017-09-26] MEDS: DOXYCYCLINE HYCLATE INJ 100 MG in SODIUM CHLORIDE 0.9% 100 ML IV SCH (09:25)
[2017-09-26] MEDS: LINEZOLID INJ 600 MG in PREMIX 1 EACH IV SCH (10:25)
[2017-09-26] MEDS: DEXT 5% NACL 0.9% KCL 20 MEQ 20 MEQ/1,000 ML BAG IV SCH (10:30)
[2017-09-26 10:54] LABS: Hemoglobin A1 (Alkaline) 97.2 % (96.5-98.5); Hemoglobin A2 (Alkaline) 2.8 % (1.5-3.5)
[2017-09-26] MEDS: VANCOMYCIN INJ 1,250 MG in SODIUM CHLORIDE 0.9% 250 ML IV SCH ×2 (13:02→21:40)
[2017-09-26] MEDS: FAT EMULSION 20% 250 ML IV SCH (14:17)
[2017-09-26] MEDS: MULTIVITAMIN INJ 10 ML in AMINO ACIDS/DEXT/LYTES 4.25-5% 2,000 ML IV SCH (17:13)
[2017-09-26] MEDS: NOREPINEPHRINE 8 MG in SODIUM CHLORIDE 0.9% 242 ML IV SCH (17:23)
[2017-09-27] MEDS: DEXT 5% NACL 0.9% KCL 20 MEQ 20 MEQ/1,000 ML BAG IV SCH ×2 (00:02→08:01)
[2017-09-27] MEDS: INSULIN REGULAR 100 UNIT/ML SUBCUT SCH ×4 (00:02→18:33)
[2017-09-27] MEDS: MORPHINE 4 MG/1 ML VIAL IV PRN ×2 (03:06→20:13)
[2017-09-27 04:33] LABS: Basophils % 0.4 % (0.0-0.8); Eosinophils # 0.1 10*3/uL (0.0-0.87); Eosinophils % 0.8 % (0.00-10.9); Hematocrit 26.5 VOL% (42.0-52.0); Hemoglobin 8.7 GM/DL (14.0-18.0); Immature Granulocytes % 4.6 %; Lymphocytes # 0.4 10*3/uL (1.4-4.0); Lymphocytes % 4.1 % (21.2-54.2); Mean Corpuscular HGB Conc 32.8 GM/DL (32-36); Mean Corpuscular Hemoglobin 35 PG (27-34); Mean Corpuscular Volume 105.6 FL (87-102); Mean Platelet Volume 8.7 FL (9.6-12.0); Monocytes # 0.7 10*3/uL (0.11-0.8); Monocytes % 6.2 % (1.7-12.7); Neutrophils # 9.1 10*3/uL (1.4-7.4); Neutrophils % 83.9 % (38.7-73.9); Platelet Count 78 T/CUMM (130-400); Red Blood Count 2.51 MC/CUMM (3.8-5.5); White Blood Count 10.8 T/CUMM (4-12)
[2017-09-27 04:59] LABS: Band Neutrophils 1 % (0-10); Giant Platelets Few; Hypochromasia 1+; Lymphocytes 2 % (20-55); Macrocytosis Slight; Ovalocytes Slight; Platelet Estimate Decreased; Segmented Neutrophils 91 % (50-85); Total Cells Counted 100
[2017-09-27 05:05] LABS: Calcium 6.9 MG/DL (8.5-10.1); Osmolality,Calculated 272.4 MOS/KG (273-304); Potassium 5.2 MMOL/L (3.5-5.1)
[2017-09-27 05:06] LABS: Albumin 0.8 G/DL (3.4-5.0); Bilirubin,Direct 3.49 MG/DL (0.0-0.20); Bilirubin,Indirect 1.9 MG/DL (0.0-1.0); Bilirubin,Total 5.4 MG/DL (0.2-1.0); Total Protein 5.6 G/DL (6.4-8.3)
[2017-09-27] MEDS: VANCOMYCIN INJ 1,250 MG in SODIUM CHLORIDE 0.9% 250 ML IV SCH ×3 (05:34→16:52)
[2017-09-27] MEDS: RIFAXIMIN 550 MG TABLET PO SCH ×2 (09:31→20:13)
[2017-09-27] MEDS: FAT EMULSION 20% 250 ML IV SCH (14:09)
[2017-09-27] MEDS ORDERED: NICOTINE 21 MG/24 HR PATCH TRANSDERM PRN (14:45)
[2017-09-27] MEDS: MULTIVITAMIN INJ 10 ML in AMINO ACIDS/DEXT/LYTES 4.25-5% 2,000 ML IV SCH (16:55)
[2017-09-27] MEDS: NOREPINEPHRINE 8 MG in SODIUM CHLORIDE 0.9% 242 ML IV SCH (18:34)
[2017-09-28] MEDS: INSULIN REGULAR 100 UNIT/ML SUBCUT SCH ×4 (00:08→17:50)
[2017-09-28] MEDS: MORPHINE 4 MG/1 ML VIAL IV PRN ×3 (02:42→21:00)
[2017-09-28 04:26] LABS: Basophils % 0.3 % (0.0-0.8); Eosinophils # 0.1 10*3/uL (0.0-0.87); Eosinophils % 0.9 % (0.00-10.9); Hematocrit 25.2 VOL% (42.0-52.0); Hemoglobin 8.4 GM/DL (14.0-18.0); Immature Granulocytes % 2.1 %; Immature Granulocytes Absolute 0.22 #; Lymphocytes # 0.5 10*3/uL (1.4-4.0); Lymphocytes % 4.7 % (21.2-54.2); Mean Corpuscular HGB Conc 33.3 GM/DL (32-36); Mean Corpuscular Hemoglobin 35 PG (27-34); Mean Corpuscular Volume 105.4 FL (87-102); Mean Platelet Volume 8.8 FL (9.6-12.0); Monocytes # 0.7 10*3/uL (0.11-0.8); Monocytes % 6.6 % (1.7-12.7); Neutrophils % 85.4 % (38.7-73.9); Red Blood Count 2.39 MC/CUMM (3.8-5.5); Red Cell Distribution Width 20.2 % (9.3-17.3); White Blood Count 10.5 T/CUMM (4-12)
[2017-09-28 04:38] LABS: Platelet Count 71 T/CUMM (130-400)
[2017-09-28] MEDS: VANCOMYCIN INJ 1,250 MG in SODIUM CHLORIDE 0.9% 250 ML IV SCH ×2 (04:52→17:19)
[2017-09-28 04:53] LABS: Band Neutrophils 2 % (0-10); Lymphocytes 5 % (20-55); Segmented Neutrophils 91 % (50-85)
[2017-09-28 04:56] LABS: Hypochromasia Slight
[2017-09-28 04:57] LABS: Macrocytosis 1+; Platelet Estimate Decreased; Polychromasia Few
[2017-09-28 05:01] LABS: Total Cells Counted 100
[2017-09-28 05:29] LABS: Albumin 0.9 G/DL (3.4-5.0); Bilirubin,Total 6.1 MG/DL (0.2-1.0); Calcium 7.2 MG/DL (8.5-10.1); Osmolality,Calculated 272.4 MOS/KG (273-304); Potassium 5.9 MMOL/L (3.5-5.1); Total Protein 5.8 G/DL (6.4-8.3)
[2017-09-28] MEDS: RIFAXIMIN 550 MG TABLET PO SCH ×2 (08:32→21:00)
[2017-09-28] MEDS ORDERED: NOREPINEPHRINE 8 MG in SODIUM CHLORIDE 0.9% 242 ML IV PRN (11:00)
[2017-09-28] MEDS: FAT EMULSION 20% 250 ML IV SCH (14:52)
[2017-09-28] MEDS ORDERED: TISSUE ADHESIVE 1 EACH APPLICATOR TOP ONE (15:18)
[2017-09-28] MEDS: MULTIVITAMIN INJ 10 ML in AMINO ACIDS/DEXT/LYTES 4.25-5% 2,000 ML IV SCH (16:29)
[2017-09-29] MEDS: INSULIN REGULAR 100 UNIT/ML SUBCUT SCH ×4 (03:01→17:49)
[2017-09-29] MEDS: VANCOMYCIN INJ 1,250 MG in SODIUM CHLORIDE 0.9% 250 ML IV SCH ×2 (05:00→16:49)
[2017-09-29 05:29] LABS: Basophils % 0.4 % (0.0-0.8); Eosinophils # 0.1 10*3/uL (0.0-0.87); Eosinophils % 1.2 % (0.00-10.9); Hematocrit 25.2 VOL% (42.0-52.0); Hemoglobin 8.4 GM/DL (14.0-18.0); Immature Granulocytes % 1.5 %; Immature Granulocytes Absolute 0.13 #; Lymphocytes # 0.6 10*3/uL (1.4-4.0); Lymphocytes % 6.5 % (21.2-54.2); Mean Corpuscular HGB Conc 33.3 GM/DL (32-36); Mean Corpuscular Hemoglobin 35 PG (27-34); Mean Platelet Volume 9.4 FL (9.6-12.0); Monocytes # 0.6 10*3/uL (0.11-0.8); Monocytes % 7.5 % (1.7-12.7); NRBC # 0.07 10*3/uL; Neutrophils % 82.9 % (38.7-73.9); Platelet Count 56 T/CUMM (130-400); Red Cell Distribution Width 19.9 % (9.3-17.3); White Blood Count 8.4 T/CUMM (4-12)
[2017-09-29 05:48] LABS: Hypochromasia 1+; Ovalocytes Slight
[2017-09-29 05:49] LABS: Macrocytosis Slight; Platelet Estimate Decreased
[2017-09-29 06:22] LABS: Albumin 0.8 G/DL (3.4-5.0); Bilirubin,Total 6.1 MG/DL (0.2-1.0); Calcium 7.5 MG/DL (8.5-10.1); Osmolality,Calculated 275.2 MOS/KG (273-304); Total Protein 5.7 G/DL (6.4-8.3)
[2017-09-29 06:28] LABS: Potassium 6.5 MMOL/L (3.5-5.1)
[2017-09-29] MEDS ORDERED: SODIUM POLYSTYRENE SULFATE 15 GM/60 ML BOTTLE PO ONE (09:17)
[2017-09-29] MEDS: RIFAXIMIN 550 MG TABLET PO SCH ×2 (09:47→20:10)
[2017-09-30] MEDS: INSULIN REGULAR 100 UNIT/ML SUBCUT SCH ×4 (00:02→19:08)
[2017-09-30] MEDS: MORPHINE 4 MG/1 ML VIAL IV PRN ×3 (00:51→20:57)
[2017-09-30 06:29] LABS: Basophils % 0.4 % (0.0-0.8); Eosinophils # 0.1 10*3/uL (0.0-0.87); Eosinophils % 0.8 % (0.00-10.9); Hematocrit 24.5 VOL% (42.0-52.0); Hemoglobin 7.9 GM/DL (14.0-18.0); Immature Granulocytes % 0.8 %; Immature Granulocytes Absolute 0.06 #; Lymphocytes # 0.6 10*3/uL (1.4-4.0); Lymphocytes % 7.7 % (21.2-54.2); Mean Corpuscular HGB Conc 32.2 GM/DL (32-36); Mean Corpuscular Hemoglobin 35 PG (27-34); Mean Platelet Volume 9.1 FL (9.6-12.0); Monocytes # 0.6 10*3/uL (0.11-0.8); Monocytes % 7.9 % (1.7-12.7); Neutrophils # 6.1 10*3/uL (1.4-7.4); Neutrophils % 82.4 % (38.7-73.9); Platelet Count 40 T/CUMM (130-400); Red Blood Count 2.29 MC/CUMM (3.8-5.5); Red Cell Distribution Width 19.8 % (9.3-17.3); White Blood Count 7.4 T/CUMM (4-12)
[2017-09-30 06:56] LABS: Calcium 7.8 MG/DL (8.5-10.1); Osmolality,Calculated 276.1 MOS/KG (273-304); Potassium 5.8 MMOL/L (3.5-5.1)
[2017-09-30 07:02] LABS: Eosinophils 3 % (0-10); Giant Platelets Few; Hypochromasia 1+; Lymphocytes 3 % (20-55); Ovalocytes Slight; Platelet Estimate Decreased; Segmented Neutrophils 85 % (50-85); Total Cells Counted 100
[2017-09-30] MEDS: RIFAXIMIN 550 MG TABLET PO SCH ×2 (09:09→20:53)
[2017-09-30] MEDS: VANCOMYCIN INJ 1,250 MG in SODIUM CHLORIDE 0.9% 250 ML IV SCH (11:46)
[2017-10-01] MEDS: INSULIN REGULAR 100 UNIT/ML SUBCUT SCH ×4 (00:33→18:36)
[2017-10-01] MEDS: VANCOMYCIN INJ 1,250 MG in SODIUM CHLORIDE 0.9% 250 ML IV SCH ×2 (04:54→22:14)
[2017-10-01 05:00] LABS: Albumin 0.8 G/DL (3.4-5.0); Bilirubin,Total 8.9 MG/DL (0.2-1.0); Calcium 7.6 MG/DL (8.5-10.1); Osmolality,Calculated 277.8 MOS/KG (273-304); Potassium 5.4 MMOL/L (3.5-5.1); Total Protein 6.1 G/DL (6.4-8.3)
[2017-10-01] MEDS: MORPHINE 4 MG/1 ML VIAL IV PRN ×3 (06:09→19:34)
[2017-10-01] MEDS: RIFAXIMIN 550 MG TABLET PO SCH ×2 (09:53→20:29)
[2017-10-02] MEDS: MORPHINE 4 MG/1 ML VIAL IV PRN ×4 (00:20→19:41)
[2017-10-02] MEDS: INSULIN REGULAR 100 UNIT/ML SUBCUT SCH ×4 (00:57→18:08)
[2017-10-02 05:59] LABS: Basophils % 0.3 % (0.0-0.8); Eosinophils # 0.1 10*3/uL (0.0-0.87); Eosinophils % 1.2 % (0.00-10.9); Hematocrit 20.1 VOL% (42.0-52.0); Immature Granulocytes % 0.6 %; Immature Granulocytes Absolute 0.04 #; Lymphocytes # 0.5 10*3/uL (1.4-4.0); Mean Corpuscular HGB Conc 30.8 GM/DL (32-36); Mean Corpuscular Hemoglobin 34 PG (27-34); Mean Corpuscular Volume 108.6 FL (87-102); Mean Platelet Volume 9.7 FL (9.6-12.0); Monocytes # 0.8 10*3/uL (0.11-0.8); Neutrophils # 5.2 10*3/uL (1.4-7.4); Neutrophils % 77.9 % (38.7-73.9); Red Blood Count 1.85 MC/CUMM (3.8-5.5); Red Cell Distribution Width 19.5 % (9.3-17.3); White Blood Count 6.7 T/CUMM (4-12)
[2017-10-02 06:06] LABS: Hemoglobin 6.2 GM/DL (14.0-18.0); Platelet Count 26 T/CUMM (130-400)
[2017-10-02] MEDS ORDERED: SODIUM CHLORIDE 0.9% 1,000 ML IV PRN ×2 (06:23→06:57)
[2017-10-02 06:29] LABS: Albumin 0.8 G/DL (3.4-5.0); Bilirubin,Total 8.3 MG/DL (0.2-1.0); Calcium 7.7 MG/DL (8.5-10.1); Osmolality,Calculated 276.8 MOS/KG (273-304); Potassium 5.6 MMOL/L (3.5-5.1)
[2017-10-02 06:53] LABS: Eosinophils 1 % (0-10); Lymphocytes 2 % (20-55); Segmented Neutrophils 88 % (50-85); Total Cells Counted 100
[2017-10-02 06:54] LABS: Hypochromasia 1+; Macrocytosis Slight; Ovalocytes Slight; Platelet Estimate Decreased
[2017-10-02] MEDS: RIFAXIMIN 550 MG TABLET PO SCH ×2 (08:35→23:09)
[2017-10-02] MEDS ORDERED: ACETAMINOPHEN 325 MG TABLET PO PRN (10:17)
[2017-10-02] MEDS: ONDANSETRON 4 MG/2 ML VIAL IV PRN (11:13)
[2017-10-02] MEDS ORDERED: METOPROLOL TARTRATE 5 MG/5 ML VIAL IV ONE ×2 (11:27→11:28)
[2017-10-02] MEDS ORDERED: NITROGLYCERIN SL 0.4 MG TABLET SL ONE (11:28)
[2017-10-02] MEDS ORDERED: ASPIRIN CHEW 81 MG TABLET PO ONE (11:29)
[2017-10-02] MEDS ORDERED: MORPHINE 4 MG/1 ML VIAL IV PRN (11:29)
[2017-10-02] MEDS ORDERED: NITROGLYCERIN SL 0.4 MG TABLET SL PRN (11:29)
[2017-10-02] MEDS ORDERED: ALUM/MAG/SIMETH/LIDO VISC 1:1 30 ML BOTTLE PO ONE (11:34)
[2017-10-02] MEDS ORDERED: ASPIRIN 325 MG TABLET ONE (11:36)
[2017-10-02] MEDS ORDERED: FUROSEMIDE 20 MG/2 ML VIAL IV ONE (11:53)
[2017-10-02] MEDS: METOPROLOL TARTRATE 25 MG TABLET PO SCH (13:55)
[2017-10-02] MEDS: NYSTATIN 500,000 UNIT/5 ML UDCUP SWISH/SWAL SCH ×3 (14:10→23:08)
[2017-10-02] MEDS: VANCOMYCIN INJ 1,250 MG in SODIUM CHLORIDE 0.9% 250 ML IV SCH (17:51)
[2017-10-03] MEDS: INSULIN REGULAR 100 UNIT/ML SUBCUT SCH ×3 (00:32→11:46)
[2017-10-03 05:53] LABS: Basophils % 0.2 % (0.0-0.8); Eosinophils # 0.1 10*3/uL (0.0-0.87); Eosinophils % 0.8 % (0.00-10.9); Hematocrit 19.7 VOL% (42.0-52.0); Immature Granulocytes % 0.5 %; Immature Granulocytes Absolute 0.04 #; Lymphocytes # 0.5 10*3/uL (1.4-4.0); Lymphocytes % 6.2 % (21.2-54.2); Mean Corpuscular Hemoglobin 34 PG (27-34); Mean Corpuscular Volume 105.3 FL (87-102); Mean Platelet Volume 9.9 FL (9.6-12.0); Monocytes # 1.2 10*3/uL (0.11-0.8); Neutrophils # 6.7 10*3/uL (1.4-7.4); Neutrophils % 78.3 % (38.7-73.9); Red Blood Count 1.87 MC/CUMM (3.8-5.5); Red Cell Distribution Width 20.3 % (9.3-17.3); White Blood Count 8.5 T/CUMM (4-12)
[2017-10-03 05:59] LABS: Hemoglobin 6.3 GM/DL (14.0-18.0); Platelet Count 27 T/CUMM (130-400)
[2017-10-03 06:21] LABS: Troponin I Only < 0.015 NG/ML (0.00-0.045)
[2017-10-03 06:22] LABS: Band Neutrophils 1 % (0-10); Lymphocytes 11 % (20-55); Macrocytosis 3+; Platelet Estimate Decreased; Segmented Neutrophils 84 % (50-85); Total Cells Counted 100
[2017-10-03 06:23] LABS: Anisocytosis Slight
[2017-10-03] MEDS ORDERED: SODIUM CHLORIDE 0.9% 1,000 ML IV PRN ×2 (06:32→10:41)
[2017-10-03] MEDS ORDERED: ALBUMIN 25% 50 GM in PREMIX 1 EACH IV ONE (07:18)
[2017-10-03] MEDS: MORPHINE 4 MG/1 ML VIAL IV PRN ×2 (07:24→19:15)
[2017-10-03] MEDS: NYSTATIN 500,000 UNIT/5 ML UDCUP SWISH/SWAL SCH ×4 (08:06→20:29)
[2017-10-03] MEDS: RIFAXIMIN 550 MG TABLET PO SCH (08:07)
[2017-10-03] MEDS ORDERED: SODIUM POLYSTYRENE SULFATE 15 GM/60 ML BOTTLE PO STA (10:43)
[2017-10-03] MEDS: VANCOMYCIN INJ 1,250 MG in SODIUM CHLORIDE 0.9% 250 ML IV SCH (12:28)
[2017-10-03] MEDS ORDERED: METOPROLOL TARTRATE 5 MG/5 ML VIAL IV ONE (17:56)
[2017-10-03] MEDS ORDERED: DILTIAZEM 50 MG/10 ML VIAL IV ONE (18:25)
[2017-10-03] MEDS ORDERED: DILTIAZEM INJ 100 MG in SODIUM CHLORIDE 0.9% 100 ML IV SCH (18:30)
[2017-10-03] MEDS: METOPROLOL TARTRATE 25 MG TABLET PO SCH (20:29)
[2017-10-04] MEDS: MORPHINE 4 MG/1 ML VIAL IV PRN ×4 (01:35→23:50)
[2017-10-04 07:57] LABS: Basophils % 0.3 % (0.0-0.8); Eosinophils # 0.1 10*3/uL (0.0-0.87); Eosinophils % 0.9 % (0.00-10.9); Hematocrit 18.2 VOL% (42.0-52.0); Immature Granulocytes % 0.8 %; Immature Granulocytes Absolute 0.07 #; Lymphocytes # 0.6 10*3/uL (1.4-4.0); Lymphocytes % 6.9 % (21.2-54.2); Mean Corpuscular Hemoglobin 34 PG (27-34); Mean Corpuscular Volume 102.8 FL (87-102); Mean Platelet Volume 10.9 FL (9.6-12.0); Monocytes # 1.1 10*3/uL (0.11-0.8); Monocytes % 12.4 % (1.7-12.7); Neutrophils % 78.7 % (38.7-73.9); Red Blood Count 1.77 MC/CUMM (3.8-5.5); Red Cell Distribution Width 20.3 % (9.3-17.3); White Blood Count 8.9 T/CUMM (4-12)
[2017-10-04 08:08] LABS: Platelet Count 25 T/CUMM (130-400)
[2017-10-04 08:09] LABS: INR 1.9; PT Patient Result 19.3 SECS
[2017-10-04 08:17] LABS: Eosinophils 1 % (0-10); Hypochromasia 1+; Lymphocytes 3 % (20-55); Microcytosis Slight; Ovalocytes Slight; Platelet Estimate Decreased; Segmented Neutrophils 87 % (50-85); Total Cells Counted 100
[2017-10-04 08:25] LABS: Albumin 1.4 G/DL (3.4-5.0); Bilirubin,Total 8.8 MG/DL (0.2-1.0); Calcium 7.5 MG/DL (8.5-10.1); Osmolality,Calculated 276.1 MOS/KG (273-304); Potassium 4.7 MMOL/L (3.5-5.1); Total Protein 6.1 G/DL (6.4-8.3)
[2017-10-04] MEDS ORDERED: SODIUM CHLORIDE 0.9% 1,000 ML IV PRN ×3 (08:41→16:34)
[2017-10-04] MEDS: NYSTATIN 500,000 UNIT/5 ML UDCUP SWISH/SWAL SCH ×4 (09:06→20:21)
[2017-10-04] MEDS: RIFAXIMIN 550 MG TABLET PO SCH (09:06)
[2017-10-04] MEDS: METOPROLOL TARTRATE 25 MG TABLET PO SCH ×2 (09:40→20:20)
[2017-10-04] MEDS ORDERED: DILTIAZEM 50 MG/10 ML VIAL IV ONE (09:44)
[2017-10-04] MEDS ORDERED: VANCOMYCIN INJ 1,250 MG in SODIUM CHLORIDE 0.9% 250 ML IV SCH (11:00)
[2017-10-04] MEDS: DILTIAZEM 30 MG TABLET PO SCH ×2 (14:19→20:20)
[2017-10-04] MEDS ORDERED: ALBUMIN 25% 50 GM in PREMIX 1 EACH IV ONE (14:52)
[2017-10-05 04:46] LABS: Basophils % 0.2 % (0.0-0.8); Eosinophils # 0.1 10*3/uL (0.0-0.87); Hematocrit 24.2 VOL% (42.0-52.0); Hemoglobin 8.3 GM/DL (14.0-18.0); Immature Granulocytes % 0.8 %; Immature Granulocytes Absolute 0.09 #; Lymphocytes # 0.6 10*3/uL (1.4-4.0); Lymphocytes % 5.6 % (21.2-54.2); Mean Corpuscular HGB Conc 34.3 GM/DL (32-36); Mean Corpuscular Hemoglobin 34 PG (27-34); Mean Corpuscular Volume 98.8 FL (87-102); Monocytes # 1.3 10*3/uL (0.11-0.8); Monocytes % 11.7 % (1.7-12.7); Neutrophils # 8.8 10*3/uL (1.4-7.4); Neutrophils % 80.7 % (38.7-73.9); Red Blood Count 2.45 MC/CUMM (3.8-5.5); Red Cell Distribution Width 17.9 % (9.3-17.3); White Blood Count 10.9 T/CUMM (4-12)
[2017-10-05 04:51] LABS: Platelet Count 33 T/CUMM (130-400)
[2017-10-05 05:12] LABS: Macrocytosis 2+; Platelet Estimate Decreased
[2017-10-05 05:17] LABS: Albumin 1.9 G/DL (3.4-5.0); Bilirubin,Total 11.2 MG/DL (0.2-1.0); Calcium 7.8 MG/DL (8.5-10.1); Potassium 4.4 MMOL/L (3.5-5.1); Total Protein 6.2 G/DL (6.4-8.3)
[2017-10-05] MEDS ORDERED: SODIUM CHLORIDE 0.9% 1,000 ML IV PRN ×2 (05:46→06:51)
[2017-10-05] MEDS: METOPROLOL TARTRATE 25 MG TABLET PO SCH ×2 (09:26→21:10)
[2017-10-05] MEDS: RIFAXIMIN 550 MG TABLET PO SCH (09:27)
[2017-10-05] MEDS: NYSTATIN 500,000 UNIT/5 ML UDCUP SWISH/SWAL SCH ×5 (09:27→21:10)
[2017-10-05] MEDS: DILTIAZEM 30 MG TABLET PO SCH ×3 (09:27→21:10)
[2017-10-05] MEDS ORDERED: FUROSEMIDE 40 MG/4 ML VIAL IV ONE (12:57)
[2017-10-05] MEDS: MORPHINE 4 MG/1 ML VIAL IV PRN ×2 (16:01→21:10)
[2017-10-05 20:14] LABS: Hematocrit 29.8 VOL% (42.0-52.0); Hemoglobin 10.4 GM/DL (14.0-18.0); Platelet Count 65 T/CUMM (130-400)
[2017-10-06] MEDS: MORPHINE 4 MG/1 ML VIAL IV PRN ×2 (06:14→16:00)
[2017-10-06 06:26] LABS: Basophils % 0.2 % (0.0-0.8); Eosinophils # 0.1 10*3/uL (0.0-0.87); Eosinophils % 0.5 % (0.00-10.9); Hematocrit 29.8 VOL% (42.0-52.0); Hemoglobin 10.3 GM/DL (14.0-18.0); Immature Granulocytes Absolute 0.13 #; Lymphocytes # 0.6 10*3/uL (1.4-4.0); Lymphocytes % 4.7 % (21.2-54.2); Mean Corpuscular HGB Conc 34.6 GM/DL (32-36); Mean Corpuscular Hemoglobin 33 PG (27-34); Mean Corpuscular Volume 96.1 FL (87-102); Mean Platelet Volume 10.9 FL (9.6-12.0); Monocytes # 1.3 10*3/uL (0.11-0.8); Monocytes % 9.5 % (1.7-12.7); Neutrophils # 11.3 10*3/uL (1.4-7.4); Neutrophils % 84.1 % (38.7-73.9); Platelet Count 57 T/CUMM (130-400); Red Cell Distribution Width 17.9 % (9.3-17.3); White Blood Count 13.5 T/CUMM (4-12)
[2017-10-06 06:35] LABS: Calcium 7.7 MG/DL (8.5-10.1); Osmolality,Calculated 274.2 MOS/KG (273-304); Potassium 4.1 MMOL/L (3.5-5.1)
[2017-10-06 06:47] LABS: Band Neutrophils 2 % (0-10); Lymphocytes 4 % (20-55); Platelet Estimate Decreased; Segmented Neutrophils 88 % (50-85); Total Cells Counted 100
[2017-10-06 06:48] LABS: Macrocytosis 2+
[2017-10-06] MEDS: RIFAXIMIN 550 MG TABLET PO SCH (08:43)
[2017-10-06] MEDS: DILTIAZEM 30 MG TABLET PO SCH (08:43)
[2017-10-06] MEDS: NYSTATIN 500,000 UNIT/5 ML UDCUP SWISH/SWAL SCH ×4 (08:44→20:25)
[2017-10-06] MEDS: SPIRONOLACTONE 50 MG TABLET PO SCH (08:44)
[2017-10-06] MEDS: FUROSEMIDE 40 MG TABLET PO SCH (08:44)
[2017-10-06] MEDS: METOPROLOL TARTRATE 25 MG TABLET PO SCH ×2 (08:44→20:26)
[2017-10-06] MEDS ORDERED: AMIODARONE INJ 150 MG in DEXTROSE 5% 100 ML IV ONE (09:30)
[2017-10-06] MEDS ORDERED: AMIODARONE INJ 450 MG in DEXTROSE 5% 241 ML IV SCH (10:00)
[2017-10-06] MEDS ORDERED: AMIODARONE 150 MG/3 ML VIAL ONE (10:44)
[2017-10-06] MEDS: AMIODARONE INJ 450 MG in DEXTROSE 5% 241 ML IV SCH (18:30)
[2017-10-06] MEDS: CLOTRIMAZOLE 1% CREAM 15 GM TUBE TOP SCH (20:26)
[2017-10-07] MEDS ORDERED: ALBUMIN 25% 50 GM in PREMIX 1 EACH IV ONE (00:28)
[2017-10-07] MEDS ORDERED: SODIUM CHLORIDE 0.9% 500 ML IV ONE (00:28)
[2017-10-07] MEDS: SODIUM CHLORIDE 0.9% 1,000 ML IV SCH ×2 (05:09→08:49)
[2017-10-07] MEDS: LEVOTHYROXINE 50 MCG TABLET PO SCH (06:12)
[2017-10-07 06:41] LABS: Basophils % 0.3 % (0.0-0.8); Eosinophils # 0.1 10*3/uL (0.0-0.87); Eosinophils % 0.9 % (0.00-10.9); Hematocrit 29.4 VOL% (42.0-52.0); Hemoglobin 9.7 GM/DL (14.0-18.0); Immature Granulocytes % 1.3 %; Immature Granulocytes Absolute 0.21 #; Lymphocytes # 0.6 10*3/uL (1.4-4.0); Lymphocytes % 3.5 % (21.2-54.2); Mean Corpuscular Hemoglobin 32 PG (27-34); Mean Corpuscular Volume 98.3 FL (87-102); Mean Platelet Volume 10.5 FL (9.6-12.0); Monocytes # 1.3 10*3/uL (0.11-0.8); Monocytes % 8.4 % (1.7-12.7); Neutrophils # 13.5 10*3/uL (1.4-7.4); Neutrophils % 85.6 % (38.7-73.9); Platelet Count 65 T/CUMM (130-400); Red Blood Count 2.99 MC/CUMM (3.8-5.5); Red Cell Distribution Width 17.7 % (9.3-17.3); White Blood Count 15.8 T/CUMM (4-12)
[2017-10-07 07:06] LABS: Albumin 2.2 G/DL (3.4-5.0); Calcium 8.1 MG/DL (8.5-10.1); Osmolality,Calculated 278.1 MOS/KG (273-304); Potassium 4.2 MMOL/L (3.5-5.1); Total Protein 6.7 G/DL (6.4-8.3)
[2017-10-07 07:39] LABS: Lymphocytes 2 % (20-55); Segmented Neutrophils 92 % (50-85); Total Cells Counted 100
[2017-10-07 07:40] LABS: Hypochromasia 1+; Macrocytosis 1+; Platelet Estimate Decreased; Target Cells Slight
[2017-10-07] MEDS: RIFAXIMIN 550 MG TABLET PO SCH (08:50)
[2017-10-07] MEDS: FUROSEMIDE 40 MG TABLET PO SCH (08:50)
[2017-10-07] MEDS: METOPROLOL TARTRATE 25 MG TABLET PO SCH ×2 (08:50→21:14)
[2017-10-07] MEDS: AMIODARONE INJ 450 MG in DEXTROSE 5% 241 ML IV SCH (08:50)
[2017-10-07] MEDS: AMIODARONE 200 MG TABLET PO SCH ×2 (08:50→21:14)
[2017-10-07] MEDS: SPIRONOLACTONE 50 MG TABLET PO SCH (08:50)
[2017-10-07] MEDS: CLOTRIMAZOLE 1% CREAM 15 GM TUBE TOP SCH ×2 (08:51→21:24)
[2017-10-07] MEDS: NYSTATIN 500,000 UNIT/5 ML UDCUP SWISH/SWAL SCH ×4 (08:51→21:14)
[2017-10-07] MEDS: MORPHINE 4 MG/1 ML VIAL IV PRN ×3 (11:31→23:18)
[2017-10-08] MEDS ORDERED: LORazepam 1 MG TABLET PO ONE (01:55)
[2017-10-08 05:35] LABS: Basophils # 0.1 10*3/uL (0.0-0.2); Basophils % 0.2 % (0.0-0.8); Eosinophils # 0.1 10*3/uL (0.0-0.87); Eosinophils % 0.4 % (0.00-10.9); Hematocrit 31.9 VOL% (42.0-52.0); Hemoglobin 10.5 GM/DL (14.0-18.0); Immature Granulocytes % 1.4 %; Immature Granulocytes Absolute 0.31 #; Lymphocytes # 0.6 10*3/uL (1.4-4.0); Lymphocytes % 2.7 % (21.2-54.2); Mean Corpuscular HGB Conc 32.9 GM/DL (32-36); Mean Corpuscular Hemoglobin 33 PG (27-34); Mean Corpuscular Volume 99.7 FL (87-102); Mean Platelet Volume 10.5 FL (9.6-12.0); Monocytes # 1.7 10*3/uL (0.11-0.8); Monocytes % 7.7 % (1.7-12.7); Neutrophils # 19.5 10*3/uL (1.4-7.4); Neutrophils % 87.6 % (38.7-73.9); Red Cell Distribution Width 18.7 % (9.3-17.3); White Blood Count 22.2 T/CUMM (4-12)
[2017-10-08 05:56] LABS: Platelet Count 79 T/CUMM (130-400)
[2017-10-08] MEDS: MORPHINE 4 MG/1 ML VIAL IV PRN ×2 (06:03→23:40)
[2017-10-08] MEDS: ONDANSETRON 4 MG/2 ML VIAL IV PRN (06:03)
[2017-10-08] MEDS: LEVOTHYROXINE 50 MCG TABLET PO SCH (06:04)
[2017-10-08 06:17] LABS: Bilirubin,Total 9.5 MG/DL (0.2-1.0); Osmolality,Calculated 278.1 MOS/KG (273-304); Potassium 4.3 MMOL/L (3.5-5.1); Total Protein 6.6 G/DL (6.4-8.3)
[2017-10-08 06:30] LABS: Band Neutrophils 2 % (0-10); Lymphocytes 4 % (20-55); Segmented Neutrophils 89 % (50-85); Total Cells Counted 100
[2017-10-08 06:31] LABS: Hypochromasia 1+; Macrocytosis 1+
[2017-10-08 06:32] LABS: Platelet Estimate Decreased; Polychromasia Few
[2017-10-08] MEDS: METOPROLOL TARTRATE 25 MG TABLET PO SCH ×2 (09:29→21:41)
[2017-10-08] MEDS: AMIODARONE 200 MG TABLET PO SCH ×2 (09:29→21:41)
[2017-10-08] MEDS: NYSTATIN 500,000 UNIT/5 ML UDCUP SWISH/SWAL SCH ×4 (09:29→21:41)
[2017-10-08] MEDS: RIFAXIMIN 550 MG TABLET PO SCH (09:29)
[2017-10-08] MEDS: CLOTRIMAZOLE 1% CREAM 15 GM TUBE TOP SCH ×2 (09:29→21:42)
[2017-10-09 05:56] LABS: Basophils % 0.1 % (0.0-0.8); Eosinophils # 0.1 10*3/uL (0.0-0.87); Eosinophils % 0.3 % (0.00-10.9); Hematocrit 30.1 VOL% (42.0-52.0); Hemoglobin 9.8 GM/DL (14.0-18.0); Immature Granulocytes Absolute 0.21 #; Lymphocytes # 0.6 10*3/uL (1.4-4.0); Lymphocytes % 2.9 % (21.2-54.2); Mean Corpuscular HGB Conc 32.6 GM/DL (32-36); Mean Corpuscular Hemoglobin 33 PG (27-34); Mean Corpuscular Volume 101.3 FL (87-102); Mean Platelet Volume 10.1 FL (9.6-12.0); Monocytes # 1.6 10*3/uL (0.11-0.8); Monocytes % 7.8 % (1.7-12.7); Neutrophils # 17.7 10*3/uL (1.4-7.4); Neutrophils % 87.9 % (38.7-73.9); Platelet Count 66 T/CUMM (130-400); Red Blood Count 2.97 MC/CUMM (3.8-5.5); Red Cell Distribution Width 18.9 % (9.3-17.3); White Blood Count 20.1 T/CUMM (4-12)
[2017-10-09 06:27] LABS: Band Neutrophils 2 % (0-10); Lymphocytes 2 % (20-55); Segmented Neutrophils 93 % (50-85); Total Cells Counted 100
[2017-10-09] MEDS: LEVOTHYROXINE 50 MCG TABLET PO SCH (06:27)
[2017-10-09 06:28] LABS: Hypochromasia 1+; Macrocytosis 1+; Platelet Estimate Decreased
[2017-10-09 06:34] LABS: Albumin 1.6 G/DL (3.4-5.0); Bilirubin,Total 8.6 MG/DL (0.2-1.0); Calcium 7.7 MG/DL (8.5-10.1); Osmolality,Calculated 280.1 MOS/KG (273-304); Potassium 4.7 MMOL/L (3.5-5.1); Total Protein 6.1 G/DL (6.4-8.3)
[2017-10-09] MEDS: METOPROLOL TARTRATE 25 MG TABLET PO SCH ×2 (09:49→21:09)
[2017-10-09] MEDS: RIFAXIMIN 550 MG TABLET PO SCH (09:51)
[2017-10-09] MEDS: NYSTATIN 500,000 UNIT/5 ML UDCUP SWISH/SWAL SCH ×4 (09:51→21:09)
[2017-10-09] MEDS: AMIODARONE 200 MG TABLET PO SCH ×2 (09:52→21:09)
[2017-10-09] MEDS: CLOTRIMAZOLE 1% CREAM 15 GM TUBE TOP SCH ×2 (09:52→21:16)
[2017-10-09] MEDS: CLINDAMYCIN INJ 900 MG in PREMIX 1 EACH IV SCH ×2 (11:23→21:08)
[2017-10-09] MEDS: MORPHINE 4 MG/1 ML VIAL IV PRN (23:44)
[2017-10-10] MEDS: CLINDAMYCIN INJ 900 MG in PREMIX 1 EACH IV SCH ×3 (04:33→21:09)
[2017-10-10 06:49] LABS: Albumin 1.6 G/DL (3.4-5.0); Bilirubin,Total 8.2 MG/DL (0.2-1.0); Calcium 7.2 MG/DL (8.5-10.1); Osmolality,Calculated 285.1 MOS/KG (273-304); Potassium 4.9 MMOL/L (3.5-5.1); Total Protein 6.2 G/DL (6.4-8.3)
[2017-10-10] MEDS: LEVOTHYROXINE 50 MCG TABLET PO SCH (07:08)
[2017-10-10] MEDS: NYSTATIN 500,000 UNIT/5 ML UDCUP SWISH/SWAL SCH ×4 (08:51→21:10)
[2017-10-10] MEDS: RIFAXIMIN 550 MG TABLET PO SCH (08:51)
[2017-10-10] MEDS: AMIODARONE 200 MG TABLET PO SCH ×2 (08:52→21:10)
[2017-10-10] MEDS: METOPROLOL TARTRATE 25 MG TABLET PO SCH ×2 (08:52→21:10)
[2017-10-10] MEDS: CLOTRIMAZOLE 1% CREAM 15 GM TUBE TOP SCH ×2 (08:53→21:14)
[2017-10-10] MEDS ORDERED: ALBUMIN 25% 50 GM in PREMIX 1 EACH IV ONE (15:22)
[2017-10-10] MEDS: MORPHINE 4 MG/1 ML VIAL IV PRN (21:09)
[2017-10-11] MEDS: CLINDAMYCIN INJ 900 MG in PREMIX 1 EACH IV SCH ×3 (04:46→23:37)
[2017-10-11] MEDS: LEVOTHYROXINE 50 MCG TABLET PO SCH (06:16)
[2017-10-11] MEDS ORDERED: ALBUMIN 25% 50 GM in PREMIX 1 EACH IV ONE (06:45)
[2017-10-11] MEDS: METOPROLOL TARTRATE 25 MG TABLET PO SCH ×2 (08:22→23:22)
[2017-10-11] MEDS: NYSTATIN 500,000 UNIT/5 ML UDCUP SWISH/SWAL SCH ×4 (08:22→23:26)
[2017-10-11] MEDS: LACTULOSE 20 GM/30 ML UDCUP PO SCH ×2 (08:22→22:55)
[2017-10-11] MEDS: RIFAXIMIN 550 MG TABLET PO SCH (08:23)
[2017-10-11] MEDS: AMIODARONE 200 MG TABLET PO SCH ×2 (08:23→22:55)
[2017-10-11] MEDS: CLOTRIMAZOLE 1% CREAM 15 GM TUBE TOP SCH ×2 (08:25→23:26)
[2017-10-11] MEDS: MORPHINE 4 MG/1 ML VIAL IV PRN ×3 (09:06→22:16)
[2017-10-11 21:09] LABS: Calcium 7.3 MG/DL (8.5-10.1); Osmolality,Calculated 288.2 MOS/KG (273-304); Potassium 5.7 MMOL/L (3.5-5.1)
[2017-10-11 21:44] LABS: ABG Base Excess -11.5 MMOL/L (-2.5-2.5); ABG HCO3 15.3 MMOL/L (20-26); ABG Oxygen Saturation 93.2 % (95-100); ABG PCO2 36.7 MM HG (35-48); ABG PO2 76.4 MM HG (80-95); ABG TCO2 14.3 MMOL/L (23-27)
[2017-10-11] MEDS ORDERED: SODIUM CHLORIDE 0.9% 250 ML IV ONE (21:47)
[2017-10-11] MEDS ORDERED: LACTULOSE 160 GM/240 ML BOTTLE RECTAL ONE (22:30)
[2017-10-12] MEDS ORDERED: MORPHINE 4 MG/1 ML VIAL IV PRN (00:03)
[2017-10-12] MEDS ORDERED: LORazepam 2 MG/1 ML VIAL IV PRN (00:04)
[2017-10-12 05:08] LABS: Basophils # 0.1 10*3/uL (0.0-0.2); Basophils % 0.3 % (0.0-0.8); Eosinophils % 0.1 % (0.00-10.9); Hematocrit 31.7 VOL% (42.0-52.0); Hemoglobin 9.7 GM/DL (14.0-18.0); Immature Granulocytes Absolute 1.33 #; Lymphocytes # 0.5 10*3/uL (1.4-4.0); Lymphocytes % 1.4 % (21.2-54.2); Mean Corpuscular HGB Conc 30.6 GM/DL (32-36); Mean Corpuscular Hemoglobin 34 PG (27-34); Mean Corpuscular Volume 109.7 FL (87-102); Mean Platelet Volume 10.1 FL (9.6-12.0); Monocytes # 1.4 10*3/uL (0.11-0.8); Monocytes % 4.2 % (1.7-12.7); Platelet Count 146 T/CUMM (130-400); Red Blood Count 2.89 MC/CUMM (3.8-5.5); Red Cell Distribution Width 20.5 % (9.3-17.3); White Blood Count 33.3 T/CUMM (4-12)
[2017-10-12 05:36] LABS: Burr Cells Few; Platelet Estimate Adequate; Polychromasia Few; Segmented Neutrophils 96 % (50-85); Total Cells Counted 100
[2017-10-12 05:43] LABS: Albumin 2.5 G/DL (3.4-5.0); Bilirubin,Total 11.4 MG/DL (0.2-1.0); Calcium 7.3 MG/DL (8.5-10.1); Osmolality,Calculated 285.2 MOS/KG (273-304); Total Protein 6.8 G/DL (6.4-8.3)
[2017-10-12 05:48] LABS: Potassium 6.3 MMOL/L (3.5-5.1)
[2017-10-12] MEDS: CLINDAMYCIN INJ 900 MG in PREMIX 1 EACH IV SCH (05:57)
[2017-10-12] MEDS: LEVOTHYROXINE 50 MCG TABLET PO SCH (07:13)
[2017-10-12 07:44] VITALS: BP 62/36
[2017-10-12] MEDS: AMIODARONE 200 MG TABLET PO SCH (10:11)
[2017-10-12] MEDS: CLOTRIMAZOLE 1% CREAM 15 GM TUBE TOP SCH (10:12)
[2017-10-12] MEDS: NYSTATIN 500,000 UNIT/5 ML UDCUP SWISH/SWAL SCH (10:12)
[2017-10-12] MEDS: METOPROLOL TARTRATE 25 MG TABLET PO SCH (10:12)
== END 2017-10-12 08:34 | disposition expired | DRG 871 ==
LOC: N.ED 13:29 → SUATTDRO 14:50 → N.EDINP 14:50 → N.CC 17:49 → N.2E 09-29 12:28 → N.CC 10-02 12:07 → N.TELEN 10-07 16:59 → N.5E 10-11 18:54 → N.TELEN 10-11 20:29
PROVIDERS: ADMIT Hospitalist